=== PATIENT | female | born 1975 | race Caucasian/White ===

== ENCOUNTER 2022-03-23 20:50 | Emergency (ER) | payer BC ==
--- NOTE | 2022-03-23 21:13 | ED ---
Chest Pain HPI - General Chief Complaint: Chest Pain Stated Complaint: Heart Arrhythmia Time Seen by Provider: 03/23/22 21:06 Source: patient Mode of arrival: ambulatory Limitations: no limitations - History of Present Illness Initial Comments: This patient is a 46-year-old woman O Complaint: chest pain -: days(s) Onset: during rest Pain Location: substernal, left chest Pain Radiation: none Severity: mild Quality: aching Consistency: constant Improves With: nothing Worsens With: nothing Treatments Prior to Arrival: none - Related Data Allergies Allergy/AdvReac Type Severity Reaction Status Date / Time brexpiprazole [From Rexulti] Allergy Anaphylaxis Verified 03/23/22 21:00 cariprazine [From Vraylar] Allergy Anaphylaxis Verified 03/23/22 21:00 Review of Systems ROS Statement: Those systems with pertinent positive or pertinent negative responses have been documented in the HPI. ROS Other: All systems not noted in ROS Statement are negative. Constitutional: Denies: fever, chills Respiratory: Denies: cough, dyspnea Cardiovascular: Reports: chest pain, palpitations. Denies: dyspnea on exertion, orthopnea, edema, syncope Gastrointestinal: Denies: abdominal pain, vomiting, diarrhea Genitourinary: Denies: dysuria, hematuria Musculoskeletal: Denies: back pain Skin: Denies: rash Neurological: Denies: headache, weakness, numbness Psychiatric: Reports: anxiety EKG Findings - EKG Results: EKG: interpreted by CHAVEZ, sinus rhythm (Rate 92 bpm), normal axis, normal QRS, normal ST/T, no acute changes - MS, Pacemaker, Normal: Normal tracing: normal tracing Past Medical History Past Medical History: Hypertension History of Any Multi-Drug Resistant Organisms: None Reported Past Surgical History: No Surgical Hx Reported Past Psychological History: PTSD Smoking Status: Current every day smoker Past Alcohol Use History: Daily, Heavy Past Drug Use History: None Reported General Exam Limitations: no limitations General appearance: alert, in no apparent distress Head exam: Present: atraumatic, normocephalic Eye exam: Present: normal appearance. Absent: scleral icterus, conjunctival injection Neck exam: Present: normal inspection Respiratory exam: Present: normal lung sounds bilaterally. Absent: respiratory distress, wheezes, rales, rhonchi, stridor Cardiovascular Exam: Present: regular rate, normal rhythm, normal heart sounds. Absent: systolic murmur, diastolic murmur, rubs, gallop GI/Abdominal exam: Present: soft. Absent: distended, tenderness, guarding, rebound, rigid, mass Extremities exam: Present: normal inspection, normal capillary refill. Absent: pedal edema, calf tenderness Back exam: Present: normal inspection. Absent: CVA tenderness (R), CVA tenderness (L) Neurological exam: Present: alert Skin exam: Present: warm, dry, intact, normal color. Absent: rash Course Vital Signs 03/23/22 20:55 Temperature 98 F Pulse Rate 109 H Respiratory 20 Rate Blood Pressure 161/84 O2 Sat by Pulse 100 Oximetry Disposition Clinical Impression: Chest pain Disposition: HOME SELF-CARE Condition: Good Instructions (If sedation given, give patient instructions): Chest Pain (ED) Additional Instructions: In addition to the follow-up that we have discussed, I have included the clinic contact for Dr. Barrett who performs sleep studies. Follow up to sleep study performed. Return if any of the symptoms recur or if he worsens in any way. Is patient prescribed a controlled substance at d/c from ED?: No Referrals: None,Stated [Primary Care Provider] - 1-2 days Fide Barrett MD [STAFF PHYSICIAN] - 1-2 days Lambert Covington MD [REFERRING] - 1-2 days Decision Time: 22:15
[2022-03-23 21:33] LABS: Basophils # (A) 0.1 k/uL (0-0.2); Basophils % (A) 1 %; Eosinophils # (A) 0.5 k/uL (0-0.7); Eosinophils % (A) 4 %; HCT 43.5 % (34.0-46.0); HGB 15.1 gm/dL (11.4-16.0); Lymphocytes # (A) 2.2 k/uL (1.0-4.8); Lymphocytes % (A) 16 %; MCHC 34.8 g/dL (31.0-37.0); MCV 94.9 fL (80.0-100.0); Mean Platelet Volume 8.5; Monocytes # (A) 0.8 k/uL (0-1.0); Monocytes % (A) 6 %; Neutrophils # (A) 9.7 k/uL (1.3-7.7); Neutrophils % (A) 72 %; Platelet Count 361 k/uL (150-450); RBC 4.58 m/uL (3.80-5.40); RDW 11.7 % (11.5-15.5); WBC 13.6 k/uL (3.8-10.6)
--- NOTE | 2022-03-23 21:41 | XR ---
EXAMINATION TYPE: XR chest 2V DATE OF EXAM: 03/23/2022 9:34 PM COMPARISON: None TECHNIQUE: XR chest 2V Frontal and lateral views of the chest. CLINICAL INDICATION:Female, 46 years old with history of Chest Pain; FINDINGS: Lungs/Pleura: There is no evidence of pleural effusion, focal consolidation, or pneumothorax. Pulmonary vascularity: Unremarkable. Heart/mediastinum: Cardiomediastinal silhouette is unremarkable. Musculoskeletal: No acute osseous pathology. IMPRESSION: No acute cardiopulmonary disease/process.
[2022-03-23 21:44] LABS: ALT 15 U/L (4-34); AST 19 U/L (14-36); African American GFR (CKD) >90 (>60 ml/min/1.73 sqM); Albumin 4.8 g/dL (3.5-5.0); Alkaline Phosphatase 96 U/L (38-126); Anion Gap 13 mmol/L; Blood Urea Nitrogen 12 mg/dL (7-17); Carbon Dioxide 19 mmol/L (22-30); Chloride 106 mmol/L (98-107); Glucose 108 mg/dL (74-99); Magnesium 2.1 mg/dL (1.6-2.3); Non-African American GFR(CKD) >90 (>60 ml/min/1.73 sqM); Potassium 4.1 mmol/L (3.5-5.1); Sodium 138 mmol/L (137-145); Total Bilirubin 0.4 mg/dL (0.2-1.3); Total Protein 7.8 g/dL (6.3-8.2)
[2022-03-23] MEDS ORDERED: FLUCONAZOLE 150 MG TAB PO STA (22:47)
[2022-03-23 23:38] VITALS: BP 127/67; PULSE 78; RESP 18; TEMP 98.6
[2022-03-23 23:41] LABS: Appearance,Urine Cloudy (Clear); Bacteria,Urine Moderate /hpf; Bilirubin,Urine Negative (Negative); Blood,Urine Negative (Negative); Calcium Oxalate Crystals,Urine Rare /hpf; Color,Urine Yellow; Glucose,Urine (UA) Negative (Negative); Ketones,Urine Negative (Negative); Leukocyte Esterase,Urine Negative (Negative); Mucus,Urine Many /hpf; Nitrite,Urine Negative (Negative); PH, Urine 5.5 (5.0-8.0); Protein,Urine Trace (Negative); RBC,Urine 2 /hpf (0-5); Specific Gravity,Urine 1.017 (1.001-1.035); Squamous Epithelial Cell,Urine 1 /hpf (0-4); Urobilinogen,Urine <2.0 mg/dL (<2.0); WBC,Urine 5 /hpf (0-5)
[2022-03-24] MEDS ORDERED: MELATONIN 3 MG TABLET PO SCH (21:00)
== END 2022-03-23 23:38 | disposition home or self-care (01) ==
LOC: EC 20:50
DX: R07.89 Other chest pain (principal); I10 Essential (primary) hypertension; F17.200 Nicotine dependence, unspecified, uncomplicated
CPT/HCPCS: 36415; 71046; 80053; 81001; 83735; 84484; 85025; 93005

== ENCOUNTER → 2022-03-28 | Outpatient (CLI) | payer BC ==
--- NOTE | 2022-03-28 21:36 | CONS ---
CONSULTATION DATE OF SERVICE: 03/28/2022 46-year-old lady has been evaluated in [facility] for possible obstructive sleep apnea-hypopnea syndrome. HISTORY OF PRESENT ILLNESS/SLEEP WAKE EVALUATION: SLEEP SCHEDULE: Patient usually goes to bed late about 4:00 am and sleeps until about 8:00 am. She does have problems with falling asleep has TV set in bedroom. She usually sleeps on the back and side position. She snores and she wakes up from sleep every half hour. She feels that she has episodes of stopped breathing during sleep. In the morning, she wakes up tired, worries about her sleep, has problems with memory, concentration, irritability, depression, anxiety, claustrophobia. [place] Sleepiness Scale is 4. Usually she does not take any naps. No history of hypnagogic hallucinations, sleep paralysis or cataplexy. PAST MEDICAL HISTORY: Positive for anxiety, difficulties to breathe through the nose, restless leg symptoms. MEDICATIONS: Quetiapine 100 mg once a day. Previously patient was on treatment with Klonopin. SOCIAL HISTORY: Positive for smoking in the past, quit 10 years ago. Alcohol consumption: Patient may use alcohol every night. PAST SURGICAL HISTORY: Right foot surgery in 1999. REVIEW OF SYSTEMS: Multiple awakenings from sleep, episodes of anxiety during the day. PHYSICAL EXAMINATION: GENERAL: lady in some anxiety laying on exam table. BP 122/81, HR 94, RR 18, height 5 feet 6-1/2 inches, weight 155.2 pounds, body mass index 24.6, temperature 97.1, oxygen saturation at room air 100%. Oropharynx: Extremely low position of soft palate, Mallampati 4. Neck 15-1/2 inches in circumference. Neck: Supple, no JVD. Thyroid is not palpable. LUNGS: Clear to percussion and to auscultation. Good air exchange. No wheezing or rhonchi. HEART: S1, S2 regular. No murmurs, gallops, or rubs. ABDOMEN: Soft and nontender. Bowel sounds are present. No organomegaly appreciated. EXTREMITIES: No clubbing or cyanosis. BAG LINER: Awake, alert, and oriented X3. Cranial nerves 2 to 7 intact. There is no fasciculation or atrophy. noted. No focal deficits observed. IMPRESSION: 1. Snoring, multiple awakenings from sleep, extremely low position of soft palate, possible obstructive sleep apnea-hypopnea syndrome. 2. History of anxiety. 3. History of restless leg symptoms. 4. Sleep delay. 5. History of difficulties to breathe through the nose, possibly nasal septum deviation. PLAN: 1. Home sleep apnea test for evaluation of patient breathing during sleep. 2. Sleep hygiene with regular time bed for 7-1/2-8 hours. 3. Precautions related to driving. No driving if feeling sleepiness. 4. Following plan after reviewing results of sleep test. Thank you very much for referring this patient for consultation. Sincerely, Luis Enrique Allen MD, PhD, FAASM Diplomat of [employer] Sleep Medicine Board of [place] [employer] [facility] [place] MMODL / KEKEN: [id number] /
== END ==
LOC: SLEEP 16:39
PROVIDERS: ATTEND Internal Medicine
DX: G47.8 Other sleep disorders (principal); R06.83 Snoring; F41.9 Anxiety disorder, unspecified; G25.81 Restless legs syndrome; R06.9 Unspecified abnormalities of breathing; Z87.891 Personal history of nicotine dependence; Z88.8 Allergy status to other drugs, medicaments and biological substances
CPT/HCPCS: 99211

== ENCOUNTER 2022-04-04 12:39 | Emergency (ER) | payer BC ==
[2022-04-04 12:45] VITALS: RESP 18
[2022-04-04] MEDS ORDERED: LORazepam 2 MG/ML INJ IV STA (12:58)
--- NOTE | 2022-04-04 13:10 | ED ---
General Adult HPI - General Chief complaint: Shortness of Breath Stated complaint: Low O2/High HR Time Seen by Provider: 04/04/22 12:48 Source: patient, RN notes reviewed, old records reviewed Mode of arrival: ambulatory Limitations: no limitations - History of Present Illness Initial comments: 46-year-old female presenting for evaluation of dyspnea and generalized weakness as well as tingling in her face and extremities. Patient has history of anxiety and has been off of her Klonopin for about one month. Her symptoms have been present for the past month but it worsened over the past several days. She states that she's had a heart attack every morning for the past 3 days. She denies any associated chest pain with this. No cough or fever. She denies focal numbness or weakness. She denies abdominal pain. - Related Data Home Medications Medication Instructions Recorded Confirmed QUEtiapine [SEROquel] 100 mg PO BID 04/04/22 04/04/22 Allergies Allergy/AdvReac Type Severity Reaction Status Date / Time brexpiprazole [From Rexulti] Allergy Anaphylaxis Verified 04/04/22 14:31 cariprazine [From Vraylar] Allergy Anaphylaxis Verified 04/04/22 14:31 Review of Systems ROS Statement: Those systems with pertinent positive or pertinent negative responses have been documented in the HPI. ROS Other: All systems not noted in ROS Statement are negative. Past Medical History Past Medical History: No Reported History History of Any Multi-Drug Resistant Organisms: None Reported Past Surgical History: Orthopedic Surgery Past Psychological History: PTSD Smoking Status: Current every day smoker Past Alcohol Use History: Abuse, Daily, Heavy Past Drug Use History: None Reported General Exam Limitations: no limitations General appearance: alert, in no apparent distress, anxious Head exam: Present: atraumatic, normocephalic Eye exam: Present: normal appearance, PERRL ENT exam: Present: normal exam Neck exam: Present: normal inspection. Absent: tenderness, meningismus Respiratory exam: Present: normal lung sounds bilaterally. Absent: respiratory distress, wheezes Cardiovascular Exam: Present: regular rate, normal rhythm GI/Abdominal exam: Absent: soft, distended, tenderness, guarding Extremities exam: Present: normal inspection, normal capillary refill. Absent: pedal edema, calf tenderness Neurological exam: Present: alert, oriented X3, CN II-XII intact. Absent: motor sensory deficit Psychiatric exam: Present: anxious, flat affect Skin exam: Present: warm, dry, intact. Absent: cyanosis, diaphoretic Course Vital Signs 04/04/22 04/04/22 12:41 13:26 Temperature 97.6 F Pulse Rate 98 Respiratory 18 18 Rate Blood Pressure 154/101 O2 Sat by Pulse 100 Oximetry - Reevaluation(s) Reevaluation #1: 04/04/22 14:50 feeling completely better, I did inform her that she should follow with her primary care physician. She states she is scheduled for a sleep study. EKG Findings - EKG Comments: EKG Findings:: EKG: Sinus rhythm with short DE, ventricular rate of 89, DE interval 119, QRS duration 82, QTC 414, no ST segment changes. Medical Decision Making - Medical Decision Making 46-year-old female with chief complaint of dyspnea and weakness. Her symptoms do seem to be related to anxiety and she has a history of anxiety disorder and recently had her Klonopin discontinued. I did obtain a chest x-ray, EKG and laboratory testing to ensure that this was not in acute process. Testing is unremarkable in the emergency department. I did reassure the patient and instructed to follow-up with her primary care physician regarding her anxiety. - Lab Data Result diagrams: 04/04/22 13:35 04/04/22 13:35 Lab Results 04/04/22 04/04/22 04/04/22 Range/Units 13:35 13:35 13:35 WBC 9.4 (3.8-10.6) k/uL RBC 4.25 (3.80-5.40) m/uL Hgb 14.4 (11.4-16.0) gm/dL Hct 40.9 (34.0-46.0) % MCV 96.1 (80.0-100.0) fL MCH 33.9 (25.0-35.0) pg MCHC 35.2 (31.0-37.0) g/dL RDW 12.5 (11.5-15.5) % Plt Count 364 (150-450) k/uL MPV 8.2 Neutrophils % 75 % Lymphocytes % 17 % Monocytes % 5 % Eosinophils % 0 % Basophils % 1 % Neutrophils # 7.1 (1.3-7.7) k/uL Lymphocytes # 1.6 (1.0-4.8) k/uL Monocytes # 0.5 (0-1.0) k/uL Eosinophils # 0.0 (0-0.7) k/uL Basophils # 0.1 (0-0.2) k/uL PT 10.0 (9.0-12.0) sec INR 0.9 (<1.2) APTT 24.5 (22.0-30.0) sec Sodium 137 (137-145) mmol/L Potassium 4.4 (3.5-5.1) mmol/L Chloride 108 H (98-107) mmol/L Carbon Dioxide 22 (22-30) mmol/L Anion Gap 7 mmol/L BUN 13 (7-17) mg/dL Creatinine 0.62 (0.52-1.04) mg/dL Est GFR (CKD-EPI)AfAm >90 (>60 ml/min/1.73 sqM) Est GFR (CKD-EPI)NonAf >90 (>60 ml/min/1.73 sqM) Glucose 97 (74-99) mg/dL Calcium 9.6 (8.4-10.2) mg/dL Magnesium 2.2 (1.6-2.3) mg/dL Total Bilirubin 0.3 (0.2-1.3) mg/dL AST 16 (14-36) U/L ALT 14 (4-34) U/L Alkaline Phosphatase 81 (38-126) U/L Troponin I (0.000-0.034) ng/mL Total Protein 6.8 (6.3-8.2) g/dL Albumin 4.4 (3.5-5.0) g/dL 04/04/22 Range/Units 13:35 WBC (3.8-10.6) k/uL RBC (3.80-5.40) m/uL Hgb (11.4-16.0) gm/dL Hct (34.0-46.0) % MCV (80.0-100.0) fL MCH (25.0-35.0) pg MCHC (31.0-37.0) g/dL RDW (11.5-15.5) % Plt Count (150-450) k/uL MPV Neutrophils % % Lymphocytes % % Monocytes % % Eosinophils % % Basophils % % Neutrophils # (1.3-7.7) k/uL Lymphocytes # (1.0-4.8) k/uL Monocytes # (0-1.0) k/uL Eosinophils # (0-0.7) k/uL Basophils # (0-0.2) k/uL PT (9.0-12.0) sec INR (<1.2) APTT (22.0-30.0) sec Sodium (137-145) mmol/L Potassium (3.5-5.1) mmol/L Chloride (98-107) mmol/L Carbon Dioxide (22-30) mmol/L Anion Gap mmol/L BUN (7-17) mg/dL Creatinine (0.52-1.04) mg/dL Est GFR (CKD-EPI)AfAm (>60 ml/min/1.73 sqM) Est GFR (CKD-EPI)NonAf (>60 ml/min/1.73 sqM) Glucose (74-99) mg/dL Calcium (8.4-10.2) mg/dL Magnesium (1.6-2.3) mg/dL Total Bilirubin (0.2-1.3) mg/dL AST (14-36) U/L ALT (4-34) U/L Alkaline Phosphatase (38-126) U/L Troponin I <0.012 (0.000-0.034) ng/mL Total Protein (6.3-8.2) g/dL Albumin (3.5-5.0) g/dL Disposition Clinical Impression: Anxiety Disposition: HOME SELF-CARE Condition: Fair Instructions (If sedation given, give patient instructions): Anxiety (ED) Is patient prescribed a controlled substance at d/c from ED?: No Referrals: Rico Booker MD [Primary Care Provider] - 1-2 days Jared Denny MD [STAFF PHYSICIAN] - 1-2 days Roscoe Benjamin MD [REFERRING] - 1-2 days Time of Disposition: 14:39
--- NOTE | 2022-04-04 14:05 | XR ---
EXAMINATION TYPE: XR chest 2V DATE OF EXAM: 04/04/2022 COMPARISON: 03/23/2020 TECHNIQUE: PA and lateral views submitted. HISTORY: Shortness of breath FINDINGS: The lungs are clear and there is no pneumothorax, pleural effusion, or focal pneumonia. Heart size normal. No overt failure. IMPRESSION: 1. No acute process.
[2022-04-04 14:09] LABS: Basophils # (A) 0.1 k/uL (0-0.2); Basophils % (A) 1 %; Eosinophils % (A) 0 %; HCT 40.9 % (34.0-46.0); HGB 14.4 gm/dL (11.4-16.0); Lymphocytes # (A) 1.6 k/uL (1.0-4.8); Lymphocytes % (A) 17 %; MCH 33.9 pg (25.0-35.0); MCHC 35.2 g/dL (31.0-37.0); MCV 96.1 fL (80.0-100.0); Mean Platelet Volume 8.2; Monocytes # (A) 0.5 k/uL (0-1.0); Monocytes % (A) 5 %; Neutrophils # (A) 7.1 k/uL (1.3-7.7); Neutrophils % (A) 75 %; Platelet Count 364 k/uL (150-450); RBC 4.25 m/uL (3.80-5.40); RDW 12.5 % (11.5-15.5); WBC 9.4 k/uL (3.8-10.6)
[2022-04-04 14:21] LABS: ALT 14 U/L (4-34); AST 16 U/L (14-36); African American GFR (CKD) >90 (>60 ml/min/1.73 sqM); Albumin 4.4 g/dL (3.5-5.0); Alkaline Phosphatase 81 U/L (38-126); Anion Gap 7 mmol/L; Blood Urea Nitrogen 13 mg/dL (7-17); Calcium 9.6 mg/dL (8.4-10.2); Carbon Dioxide 22 mmol/L (22-30); Chloride 108 mmol/L (98-107); Glucose 97 mg/dL (74-99); INR 0.9 (<1.2); Magnesium 2.2 mg/dL (1.6-2.3); Non-African American GFR(CKD) >90 (>60 ml/min/1.73 sqM); Potassium 4.4 mmol/L (3.5-5.1); Sodium 137 mmol/L (137-145); Total Bilirubin 0.3 mg/dL (0.2-1.3); Total Protein 6.8 g/dL (6.3-8.2)
[2022-04-04 14:22] LABS: Partial Thromboplastin Time 24.5 sec (22.0-30.0)
[2022-04-04 15:13] VITALS: BP 133/87; PULSE 78; TEMP 97
== END 2022-04-04 15:08 | disposition home or self-care (01) ==
LOC: EC 12:39
DX: F41.9 Anxiety disorder, unspecified (principal); F17.200 Nicotine dependence, unspecified, uncomplicated; Z88.6 Allergy status to analgesic agent
CPT/HCPCS: 36415; 93005; 80053; 83735; 84484; 85025; 85610; 85730; 71046; 99285; 96374; J2060

== ENCOUNTER → 2022-07-18 | Outpatient (CLI) | payer BC ==
--- NOTE | 2022-07-18 16:07 | USB ---
Reason for Exam: Clinical finding. Patient History: Menarche at age 13. Perimenopausal. Risk Values: Henny 5 year model risk: 0.6%. NCI Lifetime model risk: 6.9%. Technique: Method: Targeted. Findings: The lower outer quadrant of the left breast, the lower section of the breast of the right breast, the axilla of both breasts and the retroareolar of both breasts were scanned. Targeted right breast ultrasound at the patient's palpable site 4:00 position. Additional scanning of the subareolar region and axilla. Directly underlying the patient's palpable area, there is a benign 1.1 x 1.0 x 0.6 cm peripherally calcified and shadowing oil cyst. This corresponds to the mammographic finding. Additional left breast ultrasound lower-outer quadrant 3:00 to 6:00 including the subareolar region and axilla. Correlating to the oval low density mass on mammogram, there is a prominent but nonenlarged 7 x 6 x 3 mm intramammary lymph node. No other solid or cystic lesion. Overall Assessment: Benign, BI-RAD 2 Management: Screening Mammogram of both breasts in 1 year. 1. Patient should continue monthly self breast exams. 2. A clinical breast exam by your physician is recommended on an annual basis. 3. This exam should not preclude additional follow-up of suspicious palpable abnormalities. Results were given to the patient verbally at the time of exam. Electronically signed and approved by: Pam Lopez M.D. Radiologist
--- NOTE | 2022-07-20 13:56 | MM ---
Reason for Exam: Clinical finding. Indicated Problems: Palpable abnormality of the right side for 1 Week(s). Patient History: Menarche at age 13. Perimenopausal. Risk Values: Henny 5 year model risk: 0.6%. NCI Lifetime model risk: 6.9%. Tissue Density: There are scattered fibroglandular densities. Findings: Analyzed By CAD. Palpable marker placed along the lower inner quadrant of the right breast. Underlying the palpable marker, there is a 1.3 cm benign area of fat necrosis/calcified oil cyst. Scattered benign round calcifications are present on the left. An oval low-density mass measuring 7 mm is present along the lower outer quadrant of the left breast middle depth for which ultrasound is recommended. Otherwise, no discrete abnormality seen. Overall Assessment: Incomplete: need additional imaging evaluation, BI-RAD 0 Management: Diagnostic Breast Ultrasound of both breasts. On the right, targeted to the patient's focal site of concern, suspected fat necrosis calcification. On the left, targeted to the lower outer quadrant, 6 to 8 cm from nipple. Electronically signed and approved by: Pam Lopez M.D. Radiologist
== END | disposition home or self-care (01) ==
LOC: RADMAMWWP 14:07
DX: Z13.89 Encounter for screening for other disorder (principal); R92.8 Other abnormal and inconclusive findings on diagnostic imaging of breast
CPT/HCPCS: 77062; 77066